=== PATIENT | female | born 1995 | race Caucasian/White ===

== ENCOUNTER → 2024-07-16 | Outpatient (CLI) | payer OTHER ==
[~2024-07-16] MED LIST: PRENATAL TABLE1 EAC9 PO
== END ==
LOC: LAB 09:35 → LAB SHORT 09:35
DX: N39.0 Urinary tract infection, site not specified (principal)
CPT/HCPCS: 87077; 87086; 87186

== ENCOUNTER → 2024-07-27 | Outpatient (CLI) | payer OTHER | LOC: LAB 13:42 → LAB SHORT 13:42 | DX: R30.0 Dysuria (principal) | CPT/HCPCS: 87077; 87086; 87186 ==

== ENCOUNTER → 2024-10-18 | Outpatient (CLI) | payer OTHER | LOC: LAB 17:18 → LAB SHORT 17:18 | DX: R30.0 Dysuria (principal) | CPT/HCPCS: 87077; 87086; 87186 ==

== ENCOUNTER → 2024-11-01 | Outpatient (CLI) | payer OTHER | LOC: LAB 11:29 → LAB SHORT 11:29 | DX: R30.0 Dysuria (principal) | CPT/HCPCS: 87077; 87086; 87186 ==

== ENCOUNTER → 2024-11-15 | Outpatient (CLI) | payer OTHER | LOC: LAB SHORT 17:46 → LAB 17:46 | DX: R30.0 Dysuria (principal) | CPT/HCPCS: 87086 ==

== ENCOUNTER → 2024-12-02 | Outpatient (CLI) | payer OTHER | LOC: LAB SHORT 11:39 → LAB 11:39 | DX: R30.0 Dysuria (principal) | CPT/HCPCS: 87077; 87086; 87147; 87186 ==

== ENCOUNTER → 2025-01-09 | Outpatient (CLI) | payer OTHER | LOC: LAB SHORT 14:24 → LAB 14:24 | DX: R30.0 Dysuria (principal) | CPT/HCPCS: 87086 ==